=== PATIENT | female | born 1990 | race Caucasian/White ===

== ENCOUNTER 2023-09-11 08:31 | Outpatient (REF) | payer OTHER, SELFPAY ==
[2023-09-11 14:30] LABS: Appearance Urine Clear; Color Urine Yellow; Glucose Urine UA Negative (Negative); Leukocyte Esterase Urine Negative (Negative); Nitrite Urine Negative (Negative); Urine Blood Negative (Negative); Urine Ketones Negative (Negative); Urine Protein Negative (Neg-Trace)
[2023-09-11 15:08] LABS: TSH reflex Free T4 1.79 uIU/mL (0.32-4.0)
[2023-09-13 00:14] LABS: Prolactin 7.4 ng/mL
== END 2023-09-11 08:32 | disposition home or self-care (01) ==
LOC: HO.CHCLDS 08:31
PROVIDERS: Visit Provider Internal Medicine
DX: N64.3 Galactorrhea not associated with childbirth (principal); R68.82 Decreased libido; E03.9 Hypothyroidism, unspecified; N30.00 Acute cystitis without hematuria
CPT/HCPCS: 36415; 81003; 84146; 84443; 87086

== ENCOUNTER 2023-09-25 14:27 | Outpatient (REF) | payer OTHER, SELFPAY ==
[2023-09-28 08:53] LABS: HPV mRNA E6/E7 rflx Not Detected (Not Detected)
== END 2023-09-25 14:28 | disposition home or self-care (01) ==
LOC: HO.HHCLNP 14:27
PROVIDERS: Visit Provider Advanced Practice Midwife
DX: Z01.419 Encounter for gynecological examination (general) (routine) without abnormal findings (principal)
CPT/HCPCS: 87624; 88142

== ENCOUNTER 2023-11-12 14:23 | Outpatient (REF) | payer MEDICAID, OTHER, SELFPAY ==
--- NOTE | ~2023-11-12 | US_ITS ---
EXAMINATION: MM DIAGNOSTIC DIGITAL BREAST TOMOSYNTHESIS, BILATERAL US BREAST LIMITED, BILATERAL MAMMOGRAPHY: CLINICAL INFORMATION: 33-year-old female, baseline examination, complaining of bilateral breast pain: Pain in left breast at 12:00, and pain in the right breast in the upper outer quadrant, spanning 7-11:00 axes. COMPARISON: Mammography: None. Baseline exam. TECHNIQUE: Digital breast tomosynthesis is performed in both the craniocaudal and mediolateral oblique views along with computer-aided detection (CAD). Synthesized 2D images are generated from the tomosynthesis. FINDINGS: The breasts are extremely dense, which lowers the sensitivity of mammography (ACR BI-RADS breast composition Category d). There are no significant masses, abnormal calcifications, areas of architectural distortion, or other abnormalities. Specifically, no mammographic abnormality is evident in either breast at the regions of breast pain as marked by the technologist. (Left 12:00, right 10:00). There are no skin or axillary abnormalities. ULTRASOUND: CLINICAL INFORMATION: Bilateral breast pain as described. COMPARISON: Baseline study. TECHNIQUE: Targeted sonographic evaluation was performed using a high frequency linear transducer. Attention to the right breast was given in the 7-11:00 axes, and attention to the left breast was given in the 5:00 to 9:00, and 9 to 1:00 axes. Selected archived documentation. FINDINGS: RIGHT BREAST: There is dense fibroglandular tissue. No suspicious mass is seen. There is no pathologic acoustic shadowing. There are no cystic abnormalities. There is no correlate to the region of breast pain 7-11:00 axes. LEFT BREAST: There is dense fibroglandular tissue. No suspicious mass is seen. There is no pathologic acoustic shadowing. There are no cystic abnormalities. There is no correlate to the region of left breast pain 5:00 to 9:00 axes, and 9-1 o'clock axes. US/US breast BI limited mamm only IMPRESSION: There are no findings suspicious for malignancy in either breast. There is extremely dense breast tissue. There are no sonographic or mammographic correlates to the bilateral regions of breast pain. Recommend clinical management. OVERALL ASSESSMENT: Mammography: BI-RADS 1 - Negative Ultrasound: BI-RADS 1 - Negative RECOMMENDATION: 1. Patient should be managed based on the clinical impression. 2. Otherwise, routine annual screening mammography beginning at age 40. This patient's information was entered into a reminder system with a target due date for their next mammogram.
== END 2023-11-12 14:24 | disposition home or self-care (01) ==
LOC: HO.MAMMO 14:23
PROVIDERS: PCP Advanced Practice Midwife; Visit Provider Advanced Practice Midwife
DX: Z12.31 Encounter for screening mammogram for malignant neoplasm of breast (principal); N64.4 Mastodynia
CPT/HCPCS: 76642; 77062; 77066

== ENCOUNTER → 2023-11-12 15:00 | Outpatient (BNV) | payer SELFPAY | PROVIDERS: PCP Advanced Practice Midwife; Visit Provider Radiology Diagnostic Radiology | DX: N64.4 Mastodynia (principal) | CPT/HCPCS: 76642; 77062; 77066 ==

== ENCOUNTER 2024-10-13 16:20 | Outpatient (REF) | payer SELFPAY ==
--- NOTE | ~2024-10-13 | US_ITS ---
EXAMINATION: US PELVIS CLINICAL INFORMATION: Pelvic pain, history of ovarian cyst COMPARISON: None available. TECHNIQUE: Ultrasound of the pelvis is performed using both transabdominal and transvaginal transducers along with Doppler. Transvaginal imaging is performed due to inadequate visualization transabdominally. FINDINGS: Uterus: The uterus is anteverted and measures 8.6 x 3.7 x 5.7 cm. The double wall endometrial thickness is 0.9 mm. Slightly heterogeneous endometrium with one region of hypoechogenicity in one region of increased echogenicity. The uterus is smooth in contour and has normal myometrial echogenicity. No visible fibroid. Adnexa: Both ovaries are visualized. There is normal color flow to the adnexa. There is no ovarian torsion. There is no pelvic ascites or fluid collection. Right ovary measures 2.8 x 2.2 x 1.8 cm. Left ovary measures 4 mm 2.4 x 2.3 cm. US/US pelvic and transvaginal IMPRESSION: Slightly heterogeneous endometrium with one region of hypoechogenicity in one region of increased echogenicity. Consider follow-up ultrasound in 6-8 weeks. Electronically signed by: Daphnie Mcclure MD 10/13/2024 09:03 PM [facility]
== END 2024-10-13 16:21 | disposition home or self-care (01) ==
LOC: HO.US 16:20
PROVIDERS: PCP Internal Medicine; Visit Provider Advanced Practice Midwife
DX: R10.2 Pelvic and perineal pain (principal)
CPT/HCPCS: 76830; 76856

== ENCOUNTER 2024-11-24 12:43 | Outpatient (REF) | payer MEDICAID, OTHER, SELFPAY ==
--- NOTE | ~2024-11-24 | US_ITS ---
CLINICAL HISTORY: abnormal endometrial ultrasound, f u 6 weeks please US pelvis transabdominal and transvaginal Comparison: 10/13/2024 Findings: Uterus measures 7.5 x 3.8 x 4.7 cm. Normal myometrium. Unremarkable endometrium measuring up to 4-5 mm ( there is small amount of endometrial secretions and the 7 mm measurement obtained by the technician overestimates the endometrial thickness ). Right ovary measures 2.7 x 1.8 x 2.4 cm and left ovary measures 3.2 x 2.2 x 2.3 cm. No adnexal mass lesion seen.. No free fluid. IMPRESSION: Unremarkable endometrium This document has been electronically signed by: Bessy Ovalle MD on 11/25/2024 13:14:55
== END 2024-11-24 12:44 | disposition home or self-care (01) ==
LOC: HO.HMGCX 12:43
PROVIDERS: PCP Internal Medicine; Visit Provider Advanced Practice Midwife
DX: R93.5 Abnormal findings on diagnostic imaging of other abdominal regions, including retroperitoneum (principal)
CPT/HCPCS: 76830; 76856

== ENCOUNTER → 2024-11-24 12:46 | Outpatient (BNV) | payer MEDICAID, SELFPAY | PROVIDERS: PCP Internal Medicine; Visit Provider Radiology Diagnostic Radiology | DX: R93.89 Abnormal findings on diagnostic imaging of other specified body structures (principal) | CPT/HCPCS: 76830; 76856 ==

== ENCOUNTER 2024-12-15 09:59 | Outpatient (REF) | payer MEDICAID, SELFPAY ==
--- OUTSIDE RECORDS SUMMARY | 2024-12-15 10:52 | XMS_ITS | Encounter Summary ---
Author Organization [employer] Address [address] [place] [address] Care Team Providers Care [employer] Planner Name Role Phone Lyla Ayala MD Primary Care Provider [phone] Reason for Visit * Reason Onset Date Comments Med Refill 12/02/2024 Encounter Details Date Type Department Care Team (Late st Contact Info) Description 12/02/2024 Refill [facility] [address] [place] [address] Lyla Ayala MD [address] [place] [address] Attention deficit hyperactivity disorder (ADHD), predominantly inattentive type Social History Tobacco Use Types Packs/Day Years Used Date Smoking Tobacco: Never Smokeless Tobacco: Never Alcohol Use Standard Drinks/Week Comments Never 0 (1 standard drink = 0.6 oz pur e alcohol) Depression Answer Date Recorded Patient Health Questionnaire-9 Score 11 04/11/2024 Patient Health Questionnaire-9 Score 11 04/11/2024 Last PHQ-9: Questionnaire Data Not on file 0 04/11/2024 Depression Answer Date Recorded Patient Health Questionnaire-2 Score 2 04/11/2024 Comments No Sex and Gender Information Value Date Recorded Sex Assigned at Female 09/04/2022 10:35 AM EDT Legal Sex Female 10:35 AM EDT Gender Identity Female 09/04/2022 10:35 AM EDT Sexual Orientation Straight 09/04/2022 10 :35 AM EDT documented as of this encounter Miscellaneous Notes * Telephone Encounter - Rikki Wheatley - 12/02/2024 1:00 PM EST TC from pt requesting medication refill. Medications needing refill : methylphenidate (Ritalin) 20 MG tablet To be sent to: [facility]/pharmacy #[id number] - [place] - [address] [place] [address] documented in this encounter Plan of Treatment Upcoming Encounters Date Type Department Care Team (Late st Contact Info) Description 12/15/2024 1:00 PM EST Office Visit [facility] [address] [place] [address] Lyla Ayala MD [address] [place] [address] documented as of this encounter Visit Diagnoses Diagnosis Attention deficit hyperactivity disorder (ADHD), predominantly inattentive type documented in this encounter Additional Health Concerns Assessment Noted Time PHQ-9 Depression Total Score: 11 024 2:55 PM EDT documented as of this encounter Care Teams [employer]anner Relationship Specialty Start Date End Date Lyla Ayala MD [address] [place] [address] PCP - General Internal Medicine 03/05/19 documented as of this encounter
--- OUTSIDE RECORDS SUMMARY | 2024-12-15 10:52 | XMS_ITS | Clinical Summary ---
Author Organization [employer] Address [address] [place] [address] Care Team Providers Care Inspector [employer] Name Role Phone Lyla Ayala MD Primary Care Provider [phone] Allergies Active Allergy Reactions Criticality Noted Date Comments Naproxen 04/05/2022 Medications * This document contains information received from the source organization and may not represent a complete record from that organization. levothyroxine (Synthroid, Levoxyl) 75 MCG tablet Take 75 mcg by mouth. 10/04/20 18 Active SUMAtriptan (Imitrex) 50 MG tablet Take 1 tablet (50 mg) by mouth 1 (one) time if needed for migraine for up to 9 doses. 9 tablet 01/29/20 24 Active buPROPion SR (Wellbutrin SR) 150 MG 12 hr tabletIndication s:Persistent depressive disorder,Episode of recurrent major depressive disorder, unspecified depression episode severity (CMS/HCC) Take 1 tablet (150 mg) by mouth Once per day. Do not crush, chew, or split. 30 tablet 6 08/28/20 24 025 Active methylphenidate (Ritalin) 20 MG tabletIndication s:Attention deficit hyperactivity disorder (ADHD), predominantly inattentive type Take 1 tablet (20 mg) by mouth Once per day. 30 tablet 12/03/19 25 025 Active methylphenidate (Ritalin) 20 MG tabletIndication s:Attention deficit hyperactivity disorder (ADHD), predominantly inattentive type Take 1 tablet (20 mg) by mouth Once per day. 30 tablet 10/27/20 24 025 Discontinued(Re order (will not trigger notification to Pharmacy)) Active Problems Problem Noted Date Diagnosed Date Attention deficit hyperactiv ity disorder (ADHD), predominantly inattentive type 04/08/2024 Assessment & Plan (05/06/2024 4:20 PM EDT): During IBH Consult Carmita Roas presenting with depressed mood, loss of interests/pleasure , changes in sleep difficulty falling asleep, psychomotor retardation, trouble concentrating, fatigue/loss of energy, difficulty concentrating and Difficulty with attention, Difficulty completing tasks/jumping between tasks or activities, Difficulty with organization, Difficulty with focus, Easily distracted, Forgetful, Difficulty being still, Restlessness/fidgeting, Interrupts others, Hyperactivity, and Executive functioning difficulty; for a period of 18+ mo, for all symptoms in the context of school and family relocation. Carmita reported having significant barriers in her occupational and interpersonal relationships due to experiencing ADHD symptoms. On last session, ADHD screening was completed. Carmita was prescribed medication (Ritalina) to treat sxs (see PCP note). During today's session Carmita reports significant improvement and feeling better. I shared concerns from patient with PCP regarding refills. Carmita is able to manage sxs and continues talking with her therapist bi-weekly (telehealth). clinician engaged patient with active, reflective listening. Offered a space to share emotions. Assessed for risks, current stressors, and protective factors. Carmita would follow-up with clinician as needed during next medical appointments. PLAN: (check all that apply) Continue with current services (defined as services in the past 12 months) . Pt is engaged with services with therapist located in [place] (telehealth sessions). She's currently taking medication for ADHD (Ritalina 10 mg). Assessment & Plan (04/11/2024 3:07 PM EDT): During IBH Consult Carmita Rosa presenting with depressed mood, loss of interests/pleasure , changes in sleep difficulty falling asleep, psychomotor retardation, trouble concentrating, fatigue/loss of energy, inappropriate guilt , hopelessness, worthlessness , difficulty concentrating and Difficulty with attention, Difficulty completing tasks/jumping between tasks or activities, Difficulty with organization, Difficulty with focus, Easily distracted, Forgetful, Difficulty being still, Restlessness/fidgeting, Interrupts others, Hyperactivity, Executive functioning difficulty, and Difficulty with relationships; for a period of 18+ mo, for all symptoms in the context of school and home relocation. Carmita reported having significant barriers in her occupational and interpersonal relationships due to experiencing ADHD symptoms. Carmita had ADHD diagnosis in [place] and was on treatment with medication (Ritalina). Pt reports running out of meds leading to severity increase of sxs. Carmita felt emotionally overwhelmed and stressed. Positive support received from and children. Pt agreed to perform ASRS-v1.1 during today's session. Information given to PCP to take diagnosis into account (See PCP note). PLAN: (check all that apply) Continue with current services (defined as services in the past 12 months) Behavioral Health Integration Plan Internal Follow up with [facility] Patient Self Plan Patient to utilize skills provided in intervention , [facility] as needed, Comply with medication , and Patient to reach out to [facility] as needed. PCP started medication for ADHD today. Pt is currently connected with services doing telehealth session w therapist in [place]. Pt will request extra support if needed during next medical appointments. Atypical migraine 01/29/2024 Encounter for gynecological examination without abnormal finding 09/25/2023 Cervical cancer screening 09/25/2023 Assessment & Plan (09/25/2023 12:02 PM EST): -pap with HPV in 5 years if today test normal Breast pain, left 09/25/2023 Assessment & Plan (09/25/2023 12:05 PM EST): -no lumps, bumps, masses, or nipple discharge -ultrasound ordered for further evaluation -breast self awareness measures reviewed Pelvic pain 09/25/2023 Assessment & Plan (09/25/2023 12:20 PM EST): -hx of ovarian cyst with previous removal -consistent pelvic pain -mild uterine tenderness on exam -will order US Libido, decreased 09/25/2023 Assessment & Plan (09/25/2023 12:21 PM EST): -correlates with depression for the last 2 years -bupropion may be helpful -discussed scheduling sex, life stress impact on libido -inform me if no improvement after a few months of bupropion Persistent depressive disorder 10/24/2022 Overview (10/24/2022): On trazodone 300 mg qhs , sees [facility] therapist every 2 weeks via televisit. Feels mood is controlled. No issues at home either.Med added to her list. Assessment & Plan (05/06/2024 4:20 PM EDT): During IBH Consult Carmita Rosa presenting with depressed mood, loss of interests/pleasure , changes in sleep difficulty falling asleep, psychomotor retardation, trouble concentrating, fatigue/loss of energy, difficulty concentrating and Difficulty with attention, Difficulty completing tasks/jumping between tasks or activities, Difficulty with organization, Difficulty with focus, Easily distracted, Forgetful, Difficulty being still, Restlessness/fidgeting, Interrupts others, Hyperactivity, and Executive functioning difficulty; for a period of 18+ mo, for all symptoms in the context of school and family relocation. Carmita reported having significant barriers in her occupational and interpersonal relationships due to experiencing ADHD symptoms. On last session, ADHD screening was completed. Carmita was prescribed medication (Ritalina) to treat sxs (see PCP note). During today's session Carmita reports significant improvement and feeling better. I shared concerns from patient with PCP regarding refills. Carmita is able to manage sxs and continues talking with her therapist bi-weekly (telehealth). clinician engaged patient with active, reflective listening. Offered a space to share emotions. Assessed for risks, current stressors, and protective factors. Carmita would follow-up with clinician as needed during next medical appointments. PLAN: (check all that apply) Continue with current services (defined as services in the past 12 months) . Pt is engaged with services with therapist located in [place] (telehealth sessions). She's currently taking medication for ADHD (Ritalina 10 mg). Assessment & Plan (04/11/2024 3:06 PM EDT): During IBH Consult Carmita Rosa presenting with depressed mood, loss of interests/pleasure , changes in sleep difficulty falling asleep, psychomotor retardation, trouble concentrating, fatigue/loss of energy, inappropriate guilt , hopelessness, worthlessness , difficulty concentrating and Difficulty with attention, Difficulty completing tasks/jumping between tasks or activities, Difficulty with organization, Difficulty with focus, Easily distracted, Forgetful, Difficulty being still, Restlessness/fidgeting, Interrupts others, Hyperactivity, Executive functioning difficulty, and Difficulty with relationships; for a period of 18+ mo, for all symptoms in the context of school and home relocation. Carmita reported having significant barriers in her occupational and interpersonal relationships due to experiencing ADHD symptoms. Carmita had ADHD diagnosis in [place] and was on treatment with medication (Ritalina). Pt reports running out of meds leading to severity increase of sxs. Carmita felt emotionally overwhelmed and stressed. Positive support received from and children. Pt agreed to perform ASRS-v1.1 during today's session. Information given to PCP to take diagnosis into account (See PCP note). PLAN: (check all that apply) Continue with current services (defined as services in the past 12 months) Behavioral Health Integration Plan Internal Follow up with I Patient Self Plan Patient to utilize skills provided in intervention , Patient to reach out to [facility] team as needed, Comply with medication , and Patient to reach out to [facility] as needed. PCP started medication for ADHD today. Pt is currently connected with services doing telehealth session w therapist in [place]. Pt will request extra support if needed during next medical appointments. Hypothyroidism 03/05/2019 Encounters Date Type Department Care Team Description 12/11/2024 Telephone [facility] CHC MED & PEDS [address] [place] [address] Lyla Ayala MD chart prep 12/02/2024 Refill [facility] MEDICINE [address] [place] [phone] Lyla Ayala MD Attention deficit hyperactivity disorder (ADHD), predominantly inattentive type 11/25/2024 Telephone [facility] WALK-IN CENTER [address], [place] [phone] Addie Ramesh RN Results 10/27/2024 Refill [facility] MEDICINE [address] [place] [address] [phone] Lyla Ayala MD Attention deficit hyperactivity disorder (ADHD), predominantly inattentive type 10/14/2024 Telephone [facility] MEDICINE [address] [place] [phone] Stephanie Brewster RN Results 10/14/2024 Orders Only [facility] MEDICINE [address] [place] [address] Agustina Lamas CNM Abnormal endometrial ultrasound (Primary Dx) 09/29/2024 1:00 PM EST Procedure Visit [facility] [address], [place] [phone] Agustina Lamas CNM Pelvic pain (Primary Dx); Stress incontinence 09/29/2024 Orders Only [facility] MED & PEDS [address] [place], [place] [phone] Lyla Ayala MD Attention deficit hyperactivity disorder (ADHD), predominantly inattentive type 09/29/2024 Telephone [facility] [address] [place] [address] Lyla Ayala MD Med Refill 09/29/2024 Travel from Last 3 Months Immunizations Name Administration Dates Next Due Influenza injectable quadriv alent IIV4 with preservative 07/24/2019 Influenza injectable quadrivalent preservative f ree 09/07/2020 Tdap 07/24/2019 Family History Medical History Relation Name Comments Cancer Father Stomach cancer Paternal Grandfather Pancreatic cancer Paternal Grandmother Relation Name Status Comments Father Paternal Grandfather Paternal Grandmother Social History Tobacco Use Types Packs/Day Years [...] Orientation Straight 09/04/2022 10 :35 AM EDT Last Filed Vital Signs Vital Sign Reading Time Taken Comments Blood Pressure 122/70 09/29/2024 1:11 PM EST Pulse 77 09/29/2024 1:11 PM EST Temperature 36.4 ??C (97.5 ??F) 09/29/2024 1:11 PM ES T Respiratory Rate 20 09/29/2024 1:11 PM EST Oxygen Saturation 99% 09/29/2024 1:11 PM EST Inhaled Oxygen Concentration - - Weight 70 kg (154 lb 6.4 oz) 09/29/2024 1:11 PM EST Height 170 cm (5' 6.93 ) 09/29/2024 1:11 PM EST Body Mass Index 24.23 09/29/2024 1:11 PM EST Plan of Treatment Upcoming Encounters Date Type Department Care Team (Late st Contact Info) Description 12/15/2024 1:00 PM EST Office Visit [facility] MED & PEDS [address] [place], [place] [phone] Lyla Ayala MD [address] [place], [place] [phone] Health Maintenance Due Date Last Done Comments SDOH Screening 1988 Alcohol/Substance Use Screening 2000 Hepatitis C Screening 2006 Hepatitis B Vaccines (1 of 3 - 19+ 3-dose series) 2007 COVID-19 Vaccine (2023-2 5 season) 2024 Influenza Vaccine (#1) 2024 , 07/24/2019, 08/26/2018 Depression Monitoring (PHQ-9) 10/11/2024, 04/11/2024 Depression Screening 04/11/2025 04/11/2024, 04/11/2024 Family Planning (PISQ) 09/29/2025 09/29/2024 Tobacco Screening 09/29/2025 09/29/2024 Cervical Cancer Screening 09/25/2028 HPV/Cotest 09/25/2028 09/25/2023 Pap Smear 09/25/2028 09/25/2023 DTaP/Tdap/Td Vaccines (3 - T d or Tdap) 07/24/2029 07/24/2019, 10/23/2018 Zoster Vaccines (1 of 2) 2038 RSV Patients and Patients Aged 60 years or older (1 - 1-dose 75+ series) 2063 HIV Screening Completed 01/30/2022 HIB Vaccines Aged Out No longer eligi ble based on patient's age to complete this topic HPV Vaccines Aged Out No longer eligi ble based on patient's age to complete this topic Hepatitis A Vaccines Aged Out No long er eligible based on patient's age to complete this topic IPV Vaccines Aged Out No longer eligi ble based on patient's age to complete this topic Meningococcal Vaccine Aged Out No casie joel eligible based on patient's age to complete this topic Pneumococcal Vaccine: Pediatrics (0 to 5 Years) and At-Risk Patients (6 to 49) Years) Aged Out No longer eligible b ased on patient's age to complete this topic RSV under 20 months Aged Out No longe r eligible based on patient's age to complete this topic Rotavirus Vaccines Aged Out No longer eligible based on patient's age to complete this topic Procedures Procedure Name Priority Date/Time Associated Diagnosis Comments US PELVIS TRANSVAGINAL Routine 11/25/2024 1:14 PM EST Abnormal endometrial ultrasound US PELVIS TRANSVAGINAL Urgent 10/13/2024 4:36 PM EST Pelvic pain HPV MRNA E6/E7 REFLEX TO HPV 16, 18/45 Routine 09/25/2023 9:30 AM EST Episode of recurrent major depressive disorder, unspecified depression episode severity (CMS/HCC) PAP SMEAR Routine 09/25/2023 9:30 AM EST Episode of recurrent major depressive disorder, unspecified depression episode severity (CMS/HCC) HIV 1/2 ANTIGEN/ANTIBODY, FOURTH GENERATION W/RFL Routine 01/30/2022 8:37 AM EDT from Last 3 Months or Most Recently Relevant to Health Maintenance Results * US Pelvis Transvaginal (11/25/2024 1:14 PM EST) Only the most recent of2 resultswithin the time period is included. Anatomical Region Laterality Modality Pelvis Ultrasound 11/25/2024 1:14 PM EST Narrative 11/25/2024 1:16 PM EST ? [facility] ?[address] ? [place] [address] ? Ultrasound Report ? Signed ? Patient: Gannon Null,Elvia ?MR# ?? : [id number] ? : 1990 ?Acct:[id number] ? Age/Sex: 34 / F ?ADM Date: 11/24/24 ? Loc: HO.HMGCX ? Attending Dr: Agustina Lamas CNM ? Ordering Physician: AGUSTINA LAMAS CNM ?? Date of Service: 11/24/24 ?? Procedure(s): US pelvic and transvaginal ?? Accession Number(s): [id number] ? cc: Lyla Ayala MD; AGUSTINA LAMAS CNM ? CLINICAL HISTORY: abnormal endometrial ultrasound, f u 6 weeks please ? US pelvis transabdominal and transvaginal ? Comparison: 10/13/2024 ? Findings: ?? Uterus measures 7.5 x 3.8 x 4.7 cm. ?? Normal myometrium. ?? Unremarkable endometrium measuring up to 4-5 mm ( there is small amount of ?? endometrial secretions and the 7 mm measurement obtained by the ultrasound ?? tech overestimates the endometrial thickness ). ? Right ovary measures 2.7 x 1.8 x 2.4 cm and left ovary measures 3.2 x 2.2 ?? x 2.3 cm. No adnexal mass lesion seen.. ? No free fluid. ? IMPRESSION: ?? Unremarkable endometrium ? This document has been electronically signed by: Bessy Ovalle MD on ?? 11/25/2024 13:14:55 ? Dictated By: ?Bessy Ovalle MD ? Signed By: ?<Electronically signed by Bessy Ovalle MD in OV> ? 11/25/24 1316 ? DD/ 1314 ? TD/TT: 11/25/24 1314 ? Non Acoustic Operator: ? Procedure Note Tyler, Yulia - 11/25/2024 [facility] [place] [address] Ultrasound Report Signed Patient: Carmita Whiteside Shelley# : [id number] : 1990Acct:[id number] Age/Sex: 34 / FADM Date: 11/24/24 Loc: HO.HMGCX Attending Dr: Agustina Lamas CNM Ordering Physician: AGUSTINA LAMAS CNM Date of Service: 11/24/24 Procedure(s): US pelvic and transvaginal Accession Number(s): [id number] cc: Lyla Ayala MD; AGUSTINA LAMAS CNM CLINICAL HISTORY: abnormal endometrial ultrasound, f u 6 weeks please US pelvis transabdominal and transvaginal Comparison: 10/13/2024 Findings: Uterus measures 7.5 x 3.8 x 4.7 cm. Normal myometrium. Unremarkable endometrium measuring up to 4-5 mm ( there is small amount of endometrial secretions and the 7 mm measurement obtained by the senior technical writer overestimates the endometrial thickness ). Right ovary measures 2.7 x 1.8 x 2.4 cm and left ovary measures 3.2 x 2.2 x 2.3 cm. No adnexal mass lesion seen.. No free fluid. IMPRESSION: Unremarkable endometrium This document has been electronically signed by: Bessy Ovalle MD on 11/25/2024 13:14:55 Dictated By: Bessy Ovalle MD Signed By: <Electronically signed by Bessy Ovalle MD in OV> 11/25/24 1316 DD/ 1314 TD/TT: 11/25/24 1314 Non Acoustic Operator: Agustina Lamas CNM IMG US PROCEDURES Final R esult * HPV mRNA E6/E7 w/Reflex to HPV Genotypes 16, 18/45 (09/25/2023 9:30 AM EST) HPV nRNA E6/E7 Not Detected Not Detected [facility] Comment:Methodology: Transcr iption-Mediated AmplificationThis assay detects E6/E7 viral messenger RNA (mRNA) from 14high-risk HPV types (16,18,31,33,35,39,45,51,52,56,58,59,66,68).Cervical sources are required for HPV testing.If a vaginal source from a patient who has had atotal hysterectomy with removal of cervix wassubmitted, please contact the testing laboratoryfor alternative testing options.For additional information, please refer tohttp://education.ThinkCERCA/faq/IAL976y4(This link if provided for information/educational purposes only.)THIS TEST WAS PERFORMED AT:[facility] [place] [phone] SPRAGUE MD HPV mRNA E6/E7 [facility] HPV 16 RNA TNP [facility] HPV 18/45 RNA TNP [facility] 09/25/2023 9:30 AM EST 09/26/2023 8:30 AM EST Agustina Lamas CNM LAB CYTOLOGY ORDERABLES F inal Result [facility] [address] [place] [address] [phone] * Pap Smear (09/25/2023 9:30 AM EST) 09/25/2023 9:30 AM EST 09/26/2023 8:30 AM EST Narrative [facility] - 10/09/2023 7:58 AM EST ----- ------- Name: Carmita Whiteside ? Age/Sex: 33/F ? : 1990 Unit#: [id number] ?? Attend Dr: AGUSTINA LAMAS CNM ?Re09/25/23 ?Status: DEP REF ? Location: HO.HHCLNP ? Disch: ? ----- ------- SPEC : [id number] ?RECD: 09/26/23 ? STATUS: ??SOUT ? REQ NUM: [id number] ? ECHO: 09/25/23 ? SUBM DR: AGUSTINA LAMAS CNM ? ENTERED: ??09/26/23 ?SP TYPE: Pap Smr ?OTHR DR: ? ORDERED: ??Pap Smear ? Interpretation ?? Satisfactory for evaluation. ?? Negative for intraepithelial lesion or malignancy. ?HPV mRNA E6/E7: ?NOT DETECTED ? This assay detects E6/E7 viral messenger RNA (mRNA) from 14 high-risk HPV types (16, 18, ?? 31, 33, 35, 39, 45, 51, 52, 56, 58, 59, 66, 68) ?? HPV testing performed by [employer] [facility], [place], [place]. ??See reference laboratory ?? portion of the EMR for entire report. ?Clinical Information LMP: Unknown date Previous PAP test: 3y, Unknown findings ? Material Received ?? ThinPrep-Cervical ----- ------- Signed (signature on file) EVELYNE Coe (ASCP) 10/09/23 0758 ? ----- ------- ? END OF REPORT ? us Agustina Lamas [facility] CYTOLOGY ORDERABLES F inal Result [facility] [address] [place] [phone] * HIV 1/2 ANTIGEN/ANTIBODY,FOURTH GENERATION W/RFL (01/30/2022 8:37 AM EDT) HIV-1/2 ANTIGEN AND ANTIBODIES, 4TH GENERATION W/ REFLEX NON-REACT SANDY NON-REACT SANDY [facility] Comment: HIV-1 antigen and HIV-1/HIV-2 antibodies were not detected. There is no laboratory evidence of HIV infection. ?? PLEASE NOTE: This information has been disclosed to you from records whose confidentiality may be protected by state law. ??If your state requires such protection, then the state law prohibits you from making any further disclosure of the information without the specific written consent of the person to whom it pertains, or as otherwise permitted by law. A general authorization for the release of medical or other information is NOT sufficient for this purpose. ? For additional information please refer to http://Zoomorama.ThinkCERCA/faq/UFU084 (This link is being provided for informational/ educational purposes only.) ? The performance of this assay has not been clinically validated in patients less than 2 years old. ?? 01/30/2022 8:37 AM EDT us Lyla Ayala MD LAB BLOOD ORDERABLES Final Result Performing Organization Address City/State/[facility] Co mo Phone Number [facility] [place] [address], from Last 3 Months or Most Recently Relevant to Health Maintenance Insurance [employer] [facility] Care Teams Inspector [employer] Relationship Specialty Start Date End Date Lyla Ayala MD [address] [place] [address] PCP - General Internal Medicine 03/05/19
--- OUTSIDE RECORDS SUMMARY | 2024-12-15 10:52 | XMS_ITS | Encounter Summary ---
Author Organization [employer] Address [address] [facility] 7 [place] [address] Care Team Providers Care Hand Heel Seat Fitter Name Role Phone Lyla Ayala MD Primary Care Provider [phone] Encounter Details Date Type Department Care Team ([facility] Contact Info) Description 09/29/2024 Orders Only [facility] CHC MED & PEDS [address] [place] [address] Lyla Ayala MD [address] [place] [address] Attention deficit hyperactivity disorder (ADHD), predominantly inattentive [...] AM EDT documented as of this encounter Plan of Treatment Upcoming Encounters Date Type Department Care Team (Late Contact Info) Description 12/15/2024 1:00 PM EST Office Visit [facility] CH[facility] MED & PEDS [address] [place] [address] Lyla Ayala MD [address] [place] [phone] documented as of this encounter Visit Diagnoses Diagnosis Attention deficit hyperactivity disorder (ADHD), predominantly inattentive type documented in this encounter Additional Health Concerns Assessment Noted Time PHQ-9 Depression Total Score: 11 024 2:55 PM EDT documented as of this encounter Care Teams Hand Heel Seat Fitter Relationship Specialty Start Date End Date Lyla Ayala MD [address] [place] [address] PCP - General Internal Medicine 03/05/19 documented as of this encounter
--- OUTSIDE RECORDS SUMMARY | 2024-12-15 10:52 | XMS_ITS | Encounter Summary ---
Author Organization [employer] Address [address] [facility] [place] [address] Care Team Providers Care Pen Or Pencil Assembly Machine Operator Name Role Phone Lyla Ayala MD Primary Care Provider +1- [phone] Encounter Details Date Type Department Care Team (Late Contact Info) Description 09/25/2023 Orders Only [facility]ED[facility] [address] [place] [address] Lyla Ayala MD [address] [place] [address] Episode of recurrent major depressive disorder, unspecified depression episode severity (CMS/HCC) Social History Tobacco Use Types Packs/Day Years Used Date Smoking Tobacco: Never Smokeless Tobacco: Never Alcohol Use Standard Drinks/Week Comments Never 0 (1 standard drink = 0.6 oz pur e alcohol) Comments No Sex and Gender Information Value Date Recorded Sex Assigned at Female 09/04/2022 10:35 AM EDT Legal Sex Female 10:35 AM EDT Gender Identity Female 09/04/2022 10:35 AM EDT Sexual Orientation Straight 09/04/2022 10 :35 AM EDT documented as of this encounter Plan of Treatment Upcoming Encounters Date Type Department Care Team (Late Contact Info) Description 12/15/2024 1:00 PM EST Office Visit [facility] [address] [place] [address] Lyla Ayala MD [address] [place] [address] (work) documented as of this encounter Procedures Procedure Name Priority Date/Time Associated Diagnosis Comments HPV MRNA E6/E7 REFLEX TO HPV 16, 18/45 Routine 09/25/2023 9:30 AM EST Episode of recurrent major depressive disorder, unspecified depression episode severity ([facility]/HCC) PAP SMEAR Routine 09/25/2023 9:30 AM EST Episode of recurrent major depressive disorder, unspecified depression episode severity (CMS/HCC) documented in this encounter Results * Pap Smear (09/25/2023 9:30 AM EST) 09/25/2023 9:30 AM EST 09/26/2023 8:30 AM EST [facility]S - 10/09/2023 7:58 AM EST ----- ------- Name: Carmita Whiteside ? Age/Sex: 33/F ? : 1990 Unit#: [id number] ?? Attend Dr: JESSICA LAMAS Tatiana ?Re09/25/23 ?Status: DEP REF ? Location: HO.HHCLNP ? Disch: ? ----- ------- SPEC : [id number] ?RECD: 09/26/23 ? STATUS: ??SOUT ? REQ NUM: [id number] ? ECHO: 09/25/23 ? SUBM DR: JESSICA LAMAS CNM ? ENTERED: ??09/26/23 ?SP TYPE: Pap Smr ?OTHR : ? ORDERED: ??Pap Smear ? Interpretation ?? Satisfactory for evaluation. ?? Negative for intraepithelial lesion or malignancy. ?HPV mRNA E6/E7: ?NOT DETECTED ? This assay detects E6/E7 viral messenger RNA (mRNA) from 14 high-risk HPV types (16, 18, ?? 31, 33, 35, 39, 45, 51, 52, 56, 58, 59, 66, 68) ?? HPV testing performed by [facility], [place], [place]. ??See reference laboratory ?? portion of the EMR for entire report. ?Clinical Information LMP: Unknown date Previous PAP test: 3y, Unknown findings ? Material Received ?? ThinPrep-Cervical ----- ------- Signed (signature on file) EVELYNE Coe ([facility]) 10/09/23 0758 ? ----- ------- ? END OF REPORT ? us Jessica Lamas [facility] LAB CYTOLOGY ORDERABLES F inal Result [facility] [address] [place] [phone] [phone] * HPV mRNA E6/E7 w/Reflex to HPV Genotypes 16, 18/45 (09/25/2023 9:30 AM EST) HPV nRNA E6/E7 Not Detected Not Detected [facility] Comment:Methodology: Transcr iption-Mediated AmplificationThis assay detects E6/E7 viral messenger RNA (mRNA) from 14high-risk HPV types (16,18,31,33,35,39,45,51,52,56,58,59,66,68).Cervical sources are required for HPV testing.If a vaginal source from a patient who has had atotal hysterectomy with removal of cervix wassubmitted, please contact the testing laboratoryfor alternative testing options.For additional information, please refer tohttp://education.PenPath/faq/DRX058d1(This link if provided for information/educational purposes only.)THIS TEST WAS PERFORMED AT:[facility] [employer] [place] [id number] SPRAGUE MD HPV mRNA E6/E7 [facility] HPV 16 RNA [facility] HPV 18/45 RNA [facility] 09/25/2023 9:30 AM EST 09/26/2023 8:30 AM EST us Jessica Lamas [facility] LAB CYTOLOGY ORDERABLES F inal Result [facility] [address] [place] [address] [phone] documented in this encounter Visit Diagnoses Diagnosis Episode of recurrent major depressive disorder, unspecified depression episode severity (CMS/HCC) documented in this encounter Care Teams Pen Or Pencil Assembly Machine Operator Relationship Specialty Start Date End Date Lyla Ayala MD [address] [place] [phone] PCP - General Internal Medicine 03/05/19 documented as of this encounter
--- OUTSIDE RECORDS SUMMARY | 2024-12-15 10:52 | XMS_ITS | Encounter Summary ---
Author Organization [employer] Address [address] [facility] [address] [address] Care Team Providers Care Cash Checker Name Role Phone Lyla Ayaal MD Primary Care Provider +1- [phone] Reason for Visit * Reason Onset Date Comments chart prep 12/11/2024 Encounter Details Date Type Department Care Team ([facility] Contact Info) Description 12/11/2024 Telephone [facility] MED & PEDS [address] [place] [address] Lyla Ayala MD [address] [place] [address] chart prep Social History Tobacco Use Types Packs/Day Years [...] encounter Miscellaneous Notes * Telephone Encounter - Carmina Lacey MA - 12/11/2024 11:29 AM EST Chart Prep Labs: not done Images: none Vaccines due: yes Referrals: none Screenings: none Overdue care gaps: Sbirt, SDOH, PHQ-9 documented in this encounter Plan of Treatment Upcoming Encounters Date Type Department Care Team ([facility] st Contact Info) Description 12/15/2024 1:00 PM EST Office Visit [facility] MED & PEDS [address] [place] [address] Lyla Ayala MD [address] [place] [address] documented as of this encounter Visit Diagnoses Not on filedocumented in this encounter Additional Health Concerns Assessment Noted Time PHQ-9 Depression Total Score: 11 024 2:55 PM EDT documented as of this encounter Care Teams Cash Checker Relationship Specialty Start Date End Date Lyla Ayala MD [address] [place] [address] PCP - General Internal Medicine 03/05/19 documented as of this encounter
--- OUTSIDE RECORDS SUMMARY | 2024-12-15 10:52 | XMS_ITS | Encounter Summary ---
Author Organization [employer] Address [address] [facility] [address] 7[address] [place] [address] Care Team Providers Care Prototype Machine Operator Name Role Phone Lyla Ayala MD Primary Care Provider [phone] [phone] Reason for Visit * Reason Onset Date Comments Results 11/25/2024 Encounter Details Date Type Department Care Team ([facility] st Contact Info) Description 11/25/2024 Telephone [facility] [address] [place] [address] Addie Ramesh RN Results Social History Tobacco Use Types Packs/Day Years [...] encounter Miscellaneous Notes * Telephone Encounter - Addie Ramesh RN - 11/25/2024 1:32 PM EST Call placed to patient. Informed patient that her repeat pelvic ultrasound was normal and had no worrisome findings. All questions answered. Patient verbalizes understanding and agreement with plan of care at this time. [employer] interpretor Eligio [id number] ----- Message from Jessica Guallpa sent at 11/25/2024 1:29 PM EST ----- Please let Carmita Rosa know her repeat pelvic ultrasound was normal, no worrisome findings (previous ultrasound showed some irregularity in lining of uterus, this is not noted on repeat). Needs Uzbek translation. Thanks! documented in this encounter Plan of Treatment Upcoming Encounters Date Type Department Care Team (Late st Contact Info) Description 12/15/2024 1:00 PM EST Office Visit [facility] MED & PEDS [address] [place] [address] Lyla Ayala MD [address] [place] [address] documented as of this encounter Visit Diagnoses Not on filedocumented in this encounter Additional Health Concerns Assessment Noted Time PHQ-9 Depression Total Score: 11 04/11/2 024 2:55 PM EDT documented as of this encounter Care Teams Prototype Machine Operator Relationship Specialty Start Date End Date Lyla Ayala MD [address] [place] [address] PCP - General Internal Medicine 03/05/19 documented as of this encounter
[2024-12-15 14:04] LABS: MANUAL DIFF FLAG NO
[2024-12-15 14:10] LABS: Basophils Percent Auto 0.8 % (0-2); Eosinophils Absolute Auto 0.2 X10*3/uL (0.0-0.4); Eosinophils Percent Auto 3.9 % (0-4); Hemoglobin 13.5 g/dl (12.0-16.0); Imm Gran Abs Auto 0.02 X10*3/uL (0.00-0.03); Imm Gran Pct Auto 0.4 % (0.0-0.4); Lymphocytes Absolute Auto 1.7 X10*3/uL (1.2-4.9); Lymphocytes Percent Auto 33.4 % (20-40); Mean Corpuscular HGB Conc 32.9 g/dl (31.0-35.0); Mean Corpuscular Hemoglobin 27.6 pg (27.0-33.0); Mean Corpuscular Volume 83.8 fL (80.0-98.0); Mean Platelet Volume 11.8 fL (9.4-12.3); Monocytes Absolute Auto 0.3 X10*3/uL (0.1-1.2); Monocytes Percent Auto 6.6 % (2-11); Neutrophils Absolute Auto 2.9 x10*3/uL (2.0-8.3); Neutrophils Percent Auto 54.9 % (45-73); Platelet Count 203 X10*3/uL (160-400); Red Blood Count 4.89 X10*6/uL (4.20-5.50); Red Cell Distribution Width 13.3 % (11.0-16.0); White Blood Count 5.2 X10*3/uL (4.8-10.8)
[2024-12-15 14:46] LABS: Alanine Aminotransferase 25 U/L (0-31); Albumin Level 4.6 g/dL (3.5-5.0); Alkaline Phosphatase 82 U/L (39-117); Anion Gap 9 (12-20); Aspartate Amino Transferase 22 U/L (5-31); Bilirubin Total 0.5 mg/dL (0.0-1.0); Blood Urea Nitrogen 16 mg/dL (9-16); Calcium 9.4 mg/dL (8.4-10.2); Carbon Dioxide 27 mmol/L (22-29); Chloride 106 mmol/L (96-108); Cholesterol 226 mg/dL (<200); Estimated Glomerular Filt Rate > 60; Glucose Random 88 mg/dL (60-115); HDL Cholesterol 65 mg/dL (>40); LDL Cholesterol Calculated 142 mg/dL (<100); Potassium 4.3 mmol/L (3.3-5.1); Sodium 138 mmol/L (135-145); TSH reflex Free T4 1.95 uIU/mL (0.32-4.0); Total Protein 7.8 g/dL (6.5-8.0); Triglycerides 96 mg/dL (<150)
== END 2024-12-15 10:00 | disposition home or self-care (01) ==
LOC: CF 09:59
PROVIDERS: Visit Provider Internal Medicine
DX: E03.9 Hypothyroidism, unspecified (principal)
CPT/HCPCS: 36415; 80053; 80061; 84443; 85025

== ENCOUNTER 2025-08-28 09:18 | Outpatient (REF) | payer MEDICAID, OTHER, SELFPAY ==
--- OUTSIDE RECORDS SUMMARY | 2025-08-28 10:07 | XMS_ITS | Encounter Summary ---
Author Organization [employer] Address [address] [place] [address] 7 [place] [address] Care Team Providers Care Lab Aid Name Role Phone Lyla Ayala MD Primary Care Provider +1- [phone] Encounter Details Date Type Department Care Team (Late Contact Info) Description 09/25/2023 Orders Only [facility] MED & PEDS [address] [place] [address] Lyla Ayala MD [address] [place] [address] Episode of recurrent major depressive disorder, unspecified [...] Department Care Team (Late Contact Info) Description 09/30/2025 9:00 AM EST Office Visit [facility] [address] [employer], [place] [phone] Jessica Lamas CNM [address] [employer], [place] [phone] documented as of this encounter Procedures Procedure Name Priority Date/Time Associated Diagnosis Comments HPV MRNA E6/E7 REFLEX TO HPV 16, 18/45 Routine 09/25/2023 9:30 AM EST Episode of recurrent major depressive disorder, unspecified depression episode severity (CMS/HCC) PAP SMEAR Routine 09/25/2023 9:30 AM EST Episode of recurrent major depressive disorder, unspecified depression episode severity ([facility]/HCC) documented in this encounter Results * Pap Smear (09/25/2023 9:30 AM EST) 09/25/2023 9:30 AM EST 09/26/2023 8:30 AM EST [facility] LABS - 10/09/2023 7:58 AM EST ----- ------- Name: Jagdeep NullCarmita rebolledo Age/Sex: 33/F : 1990 Unit#: [id number] Attend Dr: JESSICA LAMAS CNM Re09/25/23 Status: DEP REF Location: HO.HHCLNP Disch: ----- ------- SPEC : [id number] RECD: 09/26/23 STATUS: TOÑO LERMA NUM: [id number] ECHO: 09/25/23 [facility] DR: JESSICA LAMAS CNM ENTERED: 09/26/23 SP TYPE: Pap Smr OTHR DR: ORDERED: Pap Smear Interpretation Satisfactory for evaluation. Negative for intraepithelial lesion or malignancy. HPV mRNA E6/E7: NOT DETECTED This assay detects E6/E7 viral messenger RNA (mRNA) from 14 high-risk HPV types (16, 18, 31, 33, 35, 39, 45, 51, 52, 56, 58, 59, 66, 68) HPV testing performed by [employer], [place], [place]. See reference laboratory portion of the EMR for entire report. Clinical Information LMP: Unknown date Previous PAP test: 3y, Unknown findings Material Received ThinPrep-Cervical ----- ------- Signed (signature on file) EVELYNE Coe ([facility]) 10/09/23 0758 ----- ------- END OF REPORT us Jessica FLORES LAB CYTOLOGY ORDERABLES F inal Result [facility] [address] [place] [address] [phone] * HPV mRNA E6/E7 w/Reflex to HPV Genotypes 16, 18/45 (09/25/2023 9:30 AM EST) HPV nRNA E6/E7 Not Detected Not Detected [facility] Comment:Methodology: Transcr iption-Mediated AmplificationThis assay detects E6/E7 viral messenger RNA (mRNA) from 14high-risk HPV types (16,18,31,33,35,39,45,51,52,56,58,59,66,68).Cervical sources are required for HPV testing.If a vaginal source from a patient who has had atotal hysterectomy with removal of cervix wassubmitted, please contact the testing laboratoryfor alternative testing options.For additional information, please refer tohttp://education.Pongr/faq/CSA340h0(This link if provided for information/educational purposes only.)THIS TEST WAS PERFORMED AT:[employer] [place] [id number] SPRAGUE MD HPV mRNA E6/E7 [facility] HPV 16 RNA [facility] HPV 18/45 RNA [facility] 09/25/2023 9:30 AM EST 09/26/2023 8:30 AM EST us Jessica Lamas [facility] LAB CYTOLOGY ORDERABLES F inal Result [facility] [address] [place] [address] [phone] documented in this encounter Visit Diagnoses Diagnosis Episode of recurrent major depressive disorder, unspecified depression episode severity (CMS/HCC) documented in this encounter Care Teams Lab Aid Relationship Specialty Start Date End Date Lyla Ayala MD [address] [place] [phone] PCP - General Internal Medicine 03/05/19 documented as of this encounter
--- OUTSIDE RECORDS SUMMARY | 2025-08-28 10:07 | XMS_ITS | Encounter Summary ---
Author Organization [employer] Address [address] [facility] 7 [place] [address] Care Team Providers Care Supply Aide Name Role Phone Lyla Ayala MD Primary Care Provider [phone]- [phone] Encounter Details Date Type Department Care Team (Late st Contact Info) Description 12/31/2024 Orders Only [facility] [address] [place] [address] Lyla Ayala MD [address] [place] [address] Persistent depressive disorder; Episode of recurrent major depressive disorder, unspecified depression episode severity (CMS/HCC); Attention deficit hyperactivity disorder (ADHD), predominantly inattentive type Social History Tobacco Use Types Packs/Day Years Used Date Smoking Tobacco: Never Smokeless Tobacco: Never Alcohol Use Standard Drinks/Week Comments Never 0 (1 standard drink = 0.6 oz pur e alcohol) Depression Answer Date Recorded Patient Health Questionnaire-9 Score 0 12/15/2024 Patient Health Questionnaire-9 Score 0 12/15/2024 Last PHQ-9: Questionnaire Data Not on file 0 12/15/2024 Housing Stability Answer Date Recorded What is your housing situation today? I have ann weller 12/15/[address] you li ve. Do you have problems with any of the following? None of the above 12/15/2024 Food Insecurity Answer Date Recorded Within the past 12 months, y ou worried that your food would run out before you got money to buy more: Never True 12/15/2024 Within the past 12 months,th e food you bought just didn't last and you didn't have enough money to get more: Never True 08/2025 Transportation Answer Date Recorded In the past 12 months, has l ack of transportation kept you from medical appts, meetings, work or from getting things needed for daily living? No 12/15/2024 Utilities Answer Date Recorded In the past 12 months, has t he electric, gas, oil or water company threatened to shut off services in your home? No 12/15/2024 Depression Answer Date Recorded Patient Health Questionnaire-2 Score 0 12/15/2024 Internet Access Answer Date Recorded Internet Access Q1 Yes 12/15/2024 Internet Access Q2 Not on file 12/15/2024 Comments No Sex and Gender Information Value Date Recorded Sex Assigned at Female 09/04/2022 10:35 AM EDT Legal Sex Female 10:35 AM EDT Gender Identity Female 09/04/2022 10:35 AM EDT Sexual Orientation Straight 09/04/2022 10 :35 AM EDT documented as of this encounter Plan of Treatment Upcoming Encounters Date Type Department Care Team (Late st Contact Info) Description 09/30/2025 9:00 AM EST Office Visit [facility] [address] [place] [address] Jessica Guallpa CNM [address] [place] [address] documented as of this encounter Visit Diagnoses Diagnosis Persistent depressive disorder Episode of recurrent major depressive disorder, unspecified depression episode severity (CMS/HCC) Attention deficit hyperactivity disorder (ADHD), predominantly inattentive type documented in this encounter Additional Health Concerns Assessment Noted Time PHQ-9 Depression Total Score: 0 12/15/19 25 1:18 PM EST documented as of this encounter Care Teams Supply Aide Relationship Specialty Start Date End Date Lyla Ayala MD [address] [place] [address] PCP - General Internal Medicine 03/05/19 documented as of this encounter
--- OUTSIDE RECORDS SUMMARY | 2025-08-28 10:07 | XMS_ITS | Encounter Summary ---
Author Organization [employer] Address [address] [place] [address] 7 [place] [address] Care Team Providers Care Dye Colorist Dyer Name Role Phone Lyla Ayala MD Primary Care Provider Encounter Details Date Type Department Care Team ([facility] Contact Info) Description 09/29/2024 Orders Only [facility] & PEDS [address] [place] [address] Lyla Ayala MD [address] [place] [address] Attention deficit hyperactivity disorder (ADHD), predominantly inattentive [...] Upcoming Encounters Date Type Department Care Team ([facility] Contact Info) Description 09/30/2025 9:00 AM EST Office Visit [facility] [address] [place] [address] Jessica Guallpa CNM [address] [place] [address] documented as of this encounter Visit Diagnoses Diagnosis Attention deficit hyperactivity disorder (ADHD), predominantly inattentive type documented in this encounter Additional Health Concerns Assessment Noted Time PHQ-9 Depression Total Score: 11 024 2:55 PM EDT documented as of this encounter Care Teams Dye Colorist Dyer Relationship Specialty Start Date End Date Lyla Ayala MD [address] [place] [address] PCP - General Internal Medicine 03/05/19 documented as of this encounter
--- OUTSIDE RECORDS SUMMARY | 2025-08-28 10:07 | XMS_ITS | Encounter Summary ---
Author Organization [employer] Address [address] [place] [address] Care Team Providers Care Electronic Sensing Equipment Assembler Name Role Phone Lyla Ayala MD Primary Care Provider +1- [phone] Reason for Visit * Reason Onset Date Comments Med Refill 08/06/2025 Encounter Details Date Type Department Care Team (Late st Contact Info) Description 08/06/2025 Telephone [facility] MEDICINE [address] [place] [address] Lyla Ayala MD [address] [place] [address] Med Refill Social History Tobacco Use Types Packs/Day Years Used Date Smoking Tobacco: Never Smokeless Tobacco: Never Alcohol Use Standard Drinks/Week Comments Never 0 (1 standard drink = 0.6 oz pur e alcohol) Depression Answer Date Recorded Patient Health Questionnaire-9 Score 6 03/16/2025 Patient Health Questionnaire-9 Score 6 03/16/2025 Last PHQ-9: Questionnaire Data Not on file 0 03/16/2025 Housing Stability Answer Date Recorded What is [...] Date Recorded Patient Health Questionnaire-2 Score 0 03/16/2025 Internet Access Answer Date Recorded Internet Access [...] encounter Miscellaneous Notes * Telephone Encounter - Brittney Xiong LPN - 08/06/2025 11:26 AM EDT Medication was sent to [facility][id number] on 08/05/25. * Telephone Encounter - Reinier Ross - 08/06/2025 11:23 AM EDT TC from pt requesting medication refill. Medications needing refill: methylphenidate (Ritalin) 20 MG tablet To be sent to: [facility]/pharmacy #[id number] - JENA ESPINOZA [address] documented in this encounter Plan of Treatment Upcoming Encounters Date Type Department Care Team (Late st Contact Info) Description 09/30/2025 9:00 AM EST Office Visit [facility] MEDICINE [address] [place], [place] [phone] Jessica Guallpa CNM [address] [place] [address] documented as of this encounter Visit Diagnoses Not on filedocumented in this encounter Additional Health Concerns Assessment Noted Time PHQ-9 Depression Total Score: 6 03/16/20 25 3:57 PM EDT documented as of this encounter Care Teams Electronic Sensing Equipment Assembler Relationship Specialty Start Date End Date Lyla Ayala MD [address] [place] [phone] PCP - General Internal Medicine 03/05/19 documented as of this encounter
--- OUTSIDE RECORDS SUMMARY | 2025-08-28 10:07 | XMS_ITS | Clinical Summary ---
Author Organization [employer] Address [address] [facility] 7 [place] [address] Care Team Providers Care Teacher Learning Disabled Name Role Phone Lyla Ayala MD Primary Care Provider [phone] Allergies Active Allergy Reactions Criticality Noted Date Comments Naproxen 04/05/2022 Medications * This document contains information received from the source organization and may not represent a complete record from that organization. SUMAtriptan (Imitrex) 50 MG tablet Take 1 tablet (50 mg) by mouth 1 (one) time if needed for migraine for up to 9 doses. 9 tablet 01/29/20 24 Active buPROPion SR (Wellbutrin SR) 150 MG 12 hr tabletIndications :Persistent depressive disorder,Episode of recurrent major depressive disorder, unspecified depression episode severity (CMS/HCC) Take 1 tablet (150 mg) by mouth 2 times daily. Do not crush, chew, or split. 60 tablet 6 06/22/20 25 2025 Active levothyroxine (Synthroid, Levoxyl) 75 MCG tabletIndications :Acquired hypothyroidism TAKE 1 TABLET (75 MCG) BY MOUTH BEFORE BREAKFAST 90 tablet 07/09/20 25 Active methylphenidate (Ritalin) 20 MG tabletIndications :Attention deficit hyperactivity disorder (ADHD), predominantly inattentive type TAKE 1 TABLET BY MOUTH EVERY DAY 30 tablet 08/05/20 25 Active methylphenidate (Ritalin) 20 MG tabletIndications :Attention deficit hyperactivity disorder (ADHD), predominantly inattentive type TAKE 1 TABLET BY MOUTH EVERY DAY 30 tablet 06/29/20 25 2024 Discontinued(R eorder (will not trigger notification to Pharmacy)) Active [...] engaged with services with therapist located in [place] (telehealth sessions). She's currently taking medication for [...] ADHD symptoms. Carmita had ADHD diagnosis in [place] and was on treatment with medication (Ritalina). [...] Health Integration Plan Internal Follow up with [facility] Patient Self Plan Patient to utilize skills provided in intervention , [facility], Comply with medication , and Patient to reach out to [facility] as needed. PCP started medication for ADHD today. Pt is currently connected with services doing telehealth session w therapist in [place]. Pt will request extra support if needed [...] On trazodone 300 mg qhs , sees [facility] therapist every 2 weeks via televisit. Feels [...] engaged with services with therapist located in [place] (telehealth sessions). She's currently taking medication for [...] ADHD symptoms. Carmita had ADHD diagnosis in [place] and was on treatment with medication (Ritalina). [...] Health Integration Plan Internal Follow up with [facility] Patient Self Plan Patient to utilize skills provided in intervention , Patient to reach out to [facility] team as needed, Comply with medication , and Patient to reach out to [facility] as needed. PCP started medication for ADHD today. Pt is currently connected with services doing telehealth session w therapist in [place]. Pt will request extra support if needed during next medical appointments. Hypothyroidism 03/05/2019 Encounters Date Type Department Care Team Description 08/06/2025 Telephone [facility] [address] [place] [phone] Lyla Ayala MD Med Refill 08/05/2025 Refill [facility] [address] [place] [address] Lyla Ayala MD Attention deficit hyperactivity disorder (ADHD), predominantly inattentive type 07/28/2025 Telephone [facility] [address] [place] [address] Marla Lozada MA 07/09/2025 Refill [facility] [address] [place] [address] Lyla Ayala MD Acquired hypothyroidism 06/29/2025 Refill [facility] [address] [place] [phone] Lyla Ayala MD Attention deficit hyperactivity disorder (ADHD), predominantly inattentive type 06/22/2025 2:30 PM EDT Office Visit [facility] [address] [place] [address] Lyla Ayala MD Acquired hypothyroidism (Primary Dx); Persistent depressive disorder; Episode of recurrent major depressive disorder, unspecified depression episode severity (CMS/HCC) 06/22/2025 Travel 06/19/2025 Telephone [facility] [address] [place] [address] Lyla Ayala MD chart prep 05/28/2025 Refill [facility] [address] [place] [address] Lyla Ayala MD Attention deficit hyperactivity disorder (ADHD), predominantly inattentive type from Last 3 Months Immunizations Immunization Administration Dates Next Due Influenza injectable quadriv [...] Sign Reading Time Taken Comments Blood Pressure 139/84 06/22/2025 1:59 PM EDT Pulse 74 06/22/2025 1:59 PM EDT Temperature 36.6 C (97.9 F) 06/22/2025 1:59 PM EDT Respiratory Rate 20 06/22/2025 1:59 PM EDT Oxygen Saturation 98% 06/22/2025 1:59 PM EDT Inhaled Oxygen Concentration - - Weight 69.9 kg (154 lb) 06/22/2025 1:59 PM EDT Height 174 cm (5' 8.5 ) 06/22/2025 1:59 PM EDT Body Mass Index 23.08 06/22/2025 1:59 PM EDT Plan of Treatment Upcoming Encounters Date Type Department Care Team (Late st Contact Info) Description 09/30/2025 9:00 AM EST Office Visit [facility] [address] [place] [address] Agustina Lamas CNM [address] [place] [address] Health Maintenance Due Date Last Done Comments Disability Screening 1990 HPV Vaccines (1 - 3-dose series) 2003 Hepatitis C Screening 2006 Hepatitis B Vaccines (1 of 3 - 19+ 3-dose series) 2007 COVID-19 Vaccine (1 - 2024-2 5 season) 2025 Influenza Vaccine (#1) 2025 , 07/24/2019, 08/26/2018 Family Planning (PISQ) 09/29/2025 09/29/2024 Alcohol/Substance Use Screening 12/15/2025 12/15/2024 SDOH Screening 12/15/2025 12/15/2024 Depression Screening 03/16/2026 03/16/2025, 03/16/2025 Tobacco Screening 06/22/2026 06/22/2025 Cervical Cancer Screening 09/25/2028 HPV/Cotest 09/25/2028 09/25/2023 [...] patient's age to complete this topic Meningococcal B Vaccine Aged Out No l onger eligible based on patient's age to complete this topic Meningococcal Vaccine Aged Out No casie joel eligible based on patient's age to complete this topic Pneumococcal Vaccine: Pediatrics (0 to 5 Years) and At-Risk Patients (6 to 49) Years Aged Out No longer eligible b ased [...] Recently Relevant to Health Maintenance Results * HPV mRNA E6/E7 w/Reflex to HPV Genotypes 16, 18/45 (09/25/2023 9:30 AM EST) HPV nRNA E6/E7 Not Detected Not Detected [facility] Comment:Methodology: Transcr iption-Mediated AmplificationThis assay detects E6/E7 viral messenger RNA (mRNA) from 14high-risk HPV types (16,18,31,33,35,39,45,51,52,56,58,59,66,68).Cervical sources are required for HPV testing.If a vaginal source from a patient who has had atotal hysterectomy with removal of cervix wassubmitted, please contact the testing laboratoryfor alternative testing options.For additional information, please refer tohttp://education.[employer]/faq/ZOI748a3(This link if provided for information/educational purposes only.)THIS TEST WAS PERFORMED AT:[employer] [place] [phone] SPRAGUE MD HPV mRNA E6/E7 TNP [facility] HPV 16 RNA [facility] HPV 18/45 RNA [facility] 09/25/2023 9:30 AM EST 09/26/2023 8:30 AM EST us Agustina FLORES LAB CYTOLOGY ORDERABLES F inal Result [facility] [address] [place] [phone] * Pap Smear (09/25/2023 9:30 AM EST) 09/25/2023 9:30 AM EST 09/26/2023 8:30 AM EST [facility] - 10/09/2023 7:58 AM EST ----- ------- Name: Carmita Whiteside Age/Sex: 33/F : 1990 Unit#: [id number] Attend Dr: AGUSTINA LAMAS CNM Re09/25/23 Status: DEP [facility] Disch: ----- ------- SPEC : [id number] RECD: 09/26/23 STATUS: TOÑO FLORENTIN NUM: [id number] ECHO: 09/25/[address]: AGUSTINA LAMAS CNM ENTERED: 09/26/23 SP TYPE: Pap Smr OTHR DR: ORDERED: Pap Smear Interpretation Satisfactory for evaluation. Negative for intraepithelial lesion or malignancy. HPV mRNA E6/E7: NOT DETECTED This assay detects E6/E7 viral messenger RNA (mRNA) from 14 high-risk HPV types (16, 18, 31, 33, 35, 39, 45, 51, 52, 56, 58, 59, 66, 68) HPV testing performed by [employer], [place], [place]. See reference laboratory portion of the EMR for entire report. Clinical Information LMP: Unknown date Previous PAP test: 3y, Unknown findings Material Received ThinPrep-Cervical ----- ------- Signed (signature on file) EVELYNE Coe ([facility]) 10/09/23 [id number] ----- ------- END OF REPORT us Agustina Lamas [facility] CYTOLOGY ORDERABLES F inal Result [facility] [address] [place] [phone] * HIV 1/2 ANTIGEN/ANTIBODY,FOURTH GENERATION W/RFL (01/30/2022 8:37 AM EDT) [facility] HIV-1/2 ANTIGEN AND ANTIBODIES, 4TH GENERATION W/ REFLEX NON-REACT SANDY NON-REACT SANDY [facility] Comment: HIV-1 antigen and HIV-1/HIV-2 antibodies were not detected. There is no laboratory evidence of HIV infection. PLEASE NOTE: This information has been disclosed to you from records whose confidentiality may be protected by state law. If your state requires such protection, then the state law prohibits you from making any further disclosure of the information without the specific written consent of the person to whom it pertains, or as otherwise permitted by law. A general authorization for the release of medical or other information is NOT sufficient for this purpose. For additional information please refer to http://education.[employer]/faq/EML279 (This link is being provided for informational/ educational purposes only.) The performance of this assay has not been clinically validated in patients less than 2 years old. 01/30/2022 8:37 AM EDT Lyla Ayala MD LAB BLOOD ORDERABLES Final Result [facility] [address] from Last 3 Months or Most Recently Relevant to Health Maintenance Insurance [place], [place] AMT ([employer]) [facility] * Guarantor: Carmita Whiteside Account Type Relation to Patient Date of Phone Billing Address Personal/Family Self [place], [place] Care Teams Teacher Learning Disabled Relationship Specialty Start Date End Date Lyla Ayala MD [address] [place] [address] PCP - General Internal Medicine 03/05/19
[2025-08-28 14:44] LABS: MANUAL DIFF FLAG NO
[2025-08-28 14:51] LABS: Hematocrit 42.2 % (37.0-47.0); Hemoglobin 13.6 g/dl (12.0-16.0); Imm Gran Abs Auto 0.01 X10*3/uL (0.00-0.03); Imm Gran Pct Auto 0.2 % (0.0-0.4); Lymphocytes Absolute Auto 1.8 X10*3/uL (1.2-4.9); Mean Corpuscular HGB Conc 32.2 g/dl (31.0-35.0); Mean Corpuscular Hemoglobin 27.1 pg (27.0-33.0); Mean Corpuscular Volume 84.1 fL (80.0-98.0); NRBC Abs Auto 0.000 X10*3/uL (0.0-0.012); NRBC Pct Auto 0.0 /100WBC (0.0-0.2); Platelet Count 195 X10*3/uL (160-400); Red Blood Count 5.02 X10*6/uL (4.20-5.50); White Blood Count 5.6 X10*3/uL (4.8-10.8)
[2025-08-28 15:29] LABS: Anion Gap 10 (12-20); Blood Urea Nitrogen 15 mg/dL (9-16); Calcium 9.4 mg/dL (8.4-10.2); Carbon Dioxide 27 mmol/L (22-29); Chloride 106 mmol/L (96-108); Estimated Glomerular Filt Rate > 60; Potassium 4.4 mmol/L (3.3-5.1); Sodium 139 mmol/L (135-145)
== END 2025-08-28 09:19 | disposition home or self-care (01) ==
LOC: HO.CHCLDS 09:18
PROVIDERS: Visit Provider Internal Medicine
DX: E03.9 Hypothyroidism, unspecified (principal); F34.1 Dysthymic disorder
CPT/HCPCS: 36415; 80048; 84443; 85025